=== PATIENT | female | born 1975 | race African-American/Black ===

== ENCOUNTER 2016-07-08 14:49 | Emergency (ER) ==
--- NOTE | 2016-07-08 15:35 | PROVIDER DOCUMENTATION ---
HPI-General Adult <Briana Monsivais - Last Filed: 07/08/16 17:42> - General Source: patient - History of Present Illness -Gen Adult Nature of Presenting Problems: pt is a 41 y/o f present to the Er with complaints of not being able to feel her lower extremities. pt states it feels like something is sitting on top of her. Pt says she has not used the restoom all day today. Pt denies any recent car accident. pt states she feels like she's not together. Pt is tearful. Location of Pain/Injury: reports: lower extremity (bilateral) Pain Radiation: reports: back Quality of Pain: reports: pressure Severity: reports: severe Onset/Duration: reports: other (yesterday and became worse today to the point where she cant ambulate today) Timing: reports: still present, getting worse Modifying Factors: improves with: nothing Associated Symptoms: reports: back/neck pain. denies: cough, fatigue, fever/ chills, headaches Similar Symptoms Previously?: No Recently seen or treated by another doctor?: No <Cynthia Torrez - Last Filed: 07/08/16 18:00> - General Chief Complaint: Generalized Pain Stated Complaint: "CANT FEEL LOWER BODY" Time Seen by Provider: 07/08/16 15:14 Allergies/Adverse Reactions: Patient Allergies Allergy/AdvReac Type Severity Reaction Status Date / Time No Known Allergies Allergy Verified 08/18/15 11:09 Home Medications: Home Medication List Medication Instructions Recorded Confirmed Last Taken Type Amoxicillin [Amoxil] 500 mg PO TID #30 capsule 01/14/16 Unknown Rx Pregabalin [Lyrica] 75 mg PO 01/14/16 Unknown History Meloxicam [Mobic] 15 mg PO DAILY #30 tablet 07/08/16 Unknown Rx Methocarbamol [Robaxin] 500 mg PO BID #30 tablet 07/08/16 Unknown Rx Review of Systems - Adult - REVIEW OF SYSTEMS - ADULT Constitutional: reports: no symptoms reported Eyes: reports: no symptoms reported Ears, Nose, Mouth & Throat: reports: no symptoms reported Cardiovascular: reports: no symptoms reported Respiratory: reports: no symptoms reported Gastrointestinal: denies: abdominal pain, hematemesis, constipation Genitourinary: reports: no symptoms reported Musculoskeletal: reports: muscle weakness. denies: bone pain, frequent leg cramps, neck pain Integumentary: reports: no symptoms reported Neurological: reports: other (cannot feel bilateral lower extremities). denies : ataxia, dizziness/vertigo, headache/migraines Psychiatric: reports: no symptoms reported Endocrine: reports: no symptoms reported Hematologic/Lymphatic: reports: no symptoms reported Allergic/Immunologic: reports: no symptoms reported All Other Systems: Reviewed and Negative <Cynthia Torrez - Last Filed: 07/08/16 18:00> Past History - Adult - PAST MEDICAL HISTORY-ADULT Review of Records: reports: Nursing Assessment Review Major Childhood Illnesses: reports: denies history Cardiovascular: reports: denies history Respiratory: reports: denies history Gastrointestinal: reports: denies history Obstetrical/Gynecological: reports: denies history Genitourinary: reports: denies history Musculoskeletal: reports: denies history Neurological: reports: denies history Endocrine/Immune: reports: denies history Other Conditions: reports: denies history - PRIOR SURGERIES/PROCEDURES Surgical/Procedure History: reports: BTL - IMMUNIZATION STATUS Childhood Immunizations: See Nurse Assessment Flu Vaccine: See Nurse Assessment - FAMILY HISTORY Family History: reviewed, not pertinent <Cynthia Torrez - Last Filed: 07/08/16 18:00> Physical Exam-General - PHYSICAL EXAM-ADULT Initial Vital Signs Reviewed: Yes - CONSTITUTIONAL General Appearance: appears well, alert, mild distress - EYES Eyes: PERRL/EOMI, pink conjunctivae - HEAD, EARS, NOSE, MOUTH & THROAT HENMT: moist mucous membranes, normal ENT inspection - NECK Neck: non-tender, full range of motion - RESPIRATORY Respiratory: chest non-tender, lungs clear, normal breath sounds, no pleuratic chest pain, no respiratory distress, no accessory muscle use - CARDIOVASCULAR Cardiovascular: normal peripheral pulses, regular rate, rhythm, no edema, no gallop, no JVD, no murmur - GASTROINTESTINAL (ABDOMEN) Abdominal Exam: normal bowel sounds, non tender, soft - MUSCULOSKELETAL Extremity: other (Goos sharp/Dull Responses on on right fold, right leg, and left thigh.) Peripheral Pulses: dorsalis-pedis (R): 2+, dorsalis-pedis (L): 2+ - SKIN Integumentary: normal color, normal turgor, warm/dry - NEUROLOGIC Neurologic: other (negative any's bilateral) - PSYCHIATRIC Psych/Mental Status: normal thought content, normal thought process, oriented x 3, tearful <Cynthia Torrez - Last Filed: 07/08/16 18:00> Progress - PLAN OF CARE/RESULTS Progress/Plan/Lab Results: Orders Category Date Time Status LUMBAR SPINE W/O CONTRAST [CT] Stat Exams 07/08/16 15:30 Ordered CBC WITH DIFF [HEME] Stat Lab 07/08/16 15:29 Ordered COMPREHENSIVE METABOLIC PANEL [CHEM] Stat Lab 07/08/16 15:29 Ordered SED RATE [HEME] Stat Lab 07/08/16 15:29 Ordered UDS [URINE DRUG SCREEN PL] Stat Lab 07/08/16 15:[address] W/POSS RFLX CULT [URINALYSIS] Stat Lab 07/08/16 15:29 Uncollected Vital Signs - 24 hr 07/08/16 14:59 Temperature 98.7 F Pulse Rate 107 H Respiratory 20 Rate Blood Pressure 142/97 O2 Sat by Pulse 97 Oximetry Laboratory Tests 07/08/16 07/08/16 07/08/16 15:59 15:59 16:11 WBC RBC Hgb Hct MCV MCH MCHC RDW Std Deviation Plt Count MPV Immature Gran % (Auto) Neut % (Auto) Lymph % (Auto) Morton % (Auto) Eos % (Auto) Baso % (Auto) Immature Gran # (Auto) Neut # (Auto) Lymph # (Auto) Morton # (Auto) Eos # (Auto) Baso # (Auto) Sodium 136 Potassium 3.5 Chloride 103 Carbon Dioxide 23 L Anion Gap 10 BUN 9 Creatinine 0.8 Estimated GFR/1.73 m2 > 60 BUN/Creatinine Ratio 11 Glucose 100 Calculated Osmolality 271 Calcium 9.4 Total Bilirubin 0.40 AST 16 ALT 12 Alkaline Phosphatase 65 Total Protein 7.0 Albumin 4.1 Globulin 3.0 Albumin/Globulin Ratio 1.0 Urine Source CATH Urine Color YELLOW Urine Clarity CLEAR Urine pH 5.0 Ur Specific Dearing 1.020 Urine Protein NEGATIVE Urine Ketones NEGATIVE Urine Blood NEGATIVE Urine Nitrite NEGATIVE Urine Bilirubin NEGATIVE Urine Urobilinogen NORMAL Urine Microscopic RBC <10 Urine WBC NEGATIVE Urine Microscopic WBC <10 Ur Epithelial Cells <10 Urine Bacteria NEGATIVE Urine Glucose NEGATIVE Urine Opiates Screen NONE DETECTED Ur Oxycodone Screen NONE DETECTED Urine Methadone Screen NONE DETECTED Ur Barbituates Screen NONE DETECTED Ur Tricyclics Screen NONE DETECTED Ur Phencyclidine Scrn NONE DETECTED Ur Amphetamines Screen NONE DETECTED U Methamphetamines Scrn NONE DETECTED Urine MDMA Screen NONE DETECTED U Benzodiazepines Scrn NONE DETECTED Urine Cocaine Screen NONE DETECTED U Cannabinoids Screen NONE DETECTED 07/08/16 16:11 WBC 6.33 RBC 4.40 Hgb 13.6 Hct 38.6 MCV 87.7 MCH 30.9 MCHC 35.2 RDW Std Deviation 13.8 Plt Count 244 MPV 11.0 H Immature Gran % (Auto) 0.2 Neut % (Auto) 65.6 Lymph % (Auto) 25.3 Morton % (Auto) 7.6 Eos % (Auto) 1.1 Baso % (Auto) 0.2 Immature Gran # (Auto) 0.01 Neut # (Auto) 4.16 Lymph # (Auto) 1.60 Morton # (Auto) 0.48 Eos # (Auto) 0.07 Baso # (Auto) 0.01 Sodium Potassium Chloride Carbon Dioxide Anion Gap BUN Creatinine Estimated GFR/1.73 m2 BUN/Creatinine Ratio Glucose Calculated Osmolality Calcium Total Bilirubin AST ALT Alkaline Phosphatase Total Protein Albumin Globulin Albumin/Globulin Ratio Urine Source Urine Color Urine Clarity Urine pH Ur Specific Dearing Urine Protein Urine Ketones Urine Blood Urine Nitrite Urine Bilirubin Urine Urobilinogen Urine Microscopic RBC Urine WBC Urine Microscopic WBC Ur Epithelial Cells Urine Bacteria Urine Glucose Urine Opiates Screen Ur Oxycodone Screen Urine Methadone Screen Ur Barbituates Screen Ur Tricyclics Screen Ur Phencyclidine Scrn Ur Amphetamines Screen U Methamphetamines Scrn Urine MDMA Screen U Benzodiazepines Scrn Urine Cocaine Screen U Cannabinoids Screen Orders Category Date Time Status LUMBAR SPINE W/O CONTRAST [CT] Stat Exams 07/08/16 15:30 Completed CBC WITH DIFF [HEME] Stat Lab 07/08/16 16:11 Results COMPREHENSIVE METABOLIC PANEL [CHEM] Stat Lab 07/08/16 16:11 Completed SED RATE [HEME] Stat Lab 07/08/16 16:11 Results UDS [URINE DRUG SCREEN PL] Stat Lab 07/08/16 15:[address] W/POSS RFLX CULT [URINALYSIS] Stat Lab 07/08/16 15:59 Completed Vital Signs - 24 hr 07/08/16 07/08/16 14:59 16:30 Temperature 98.7 F Pulse Rate 107 H 82 Respiratory 20 16 Rate Blood Pressure 142/97 103/79 O2 Sat by Pulse 97 99 Oximetry - XRAY 1 XRAY: Bilateral XRAY Study: Lumbar Spine (w/o contrast.) Impression: Normal (Small bulging disc, but no herniation identified and no fracture ([place])) <Cynthia Torrez - Last Filed: 07/08/16 18:00> Departure - Departure Time of Disposition Order: 17:42 Certified Medical Emergency: Emergent <Briana Monsivais - Last Filed: 07/08/16 17:42> - Departure Time of Disposition Order: 17:59 Certified Medical Emergency: Emergent <Cynthia Torrez - Last Filed: 07/08/16 18:00> - Departure DIAGNOSIS: Bulging lumbar disc Lower extremity pain Qualifiers: Laterality: unspecified laterality Qualified Code(s): M79.606 - Pain in leg, unspecified Disposition: HOME 01 Condition: Stable Additional Instructions: Walk with assistance twice daily, at least 50 yards each. Follow up with specialist for further management. Prescriptions: Meloxicam [Mobic] 15 mg PO DAILY #30 tablet Methocarbamol [Robaxin] 500 mg PO BID #30 tablet Referrals: None,PCP [Primary Care Provider] - Francesco Rock DO [STAFF PHYSICIAN] - Meek Martinez MD [STAFF PHYSICIAN] - Forms: Return to School/Parent Work Instructions: Back Pain, Adult, [id number], Back Injury Prevention, Meloxicam tablets, Methocarbamol tablets Attestation - Scribe Verification/Attestation Scribe:: Cynthia Torrez Acting as Scribe for:: Briana Monsivais Scribe documention review:: This chart was documented by a scribe and accurately reflects the service the provider performed and the decisions made by the provider. <Cynthia Torrez - Last Filed: 07/08/16 18:00> Physician Attestation
[2016-07-08 16:07] LABS: URINE CULTURE PL NEEDED? NO; URINE SOURCE CATH
--- NOTE | 2016-07-08 16:12 | Diag Imaging Result Document ---
PROCEDURE NAME: LUMBAR SPINE W/O CONTRAST - 07/08/2016 CT LUMBAR SPINE WITHOUT CONTRAST: FINDINGS: There is good alignment to the lumbar spine. No compressed vertebra. No other fracture. I do not identify a disc herniation. There are bulging discs in the lower lumbar spine, but there is only mild spinal stenosis. No other abnormality. IMPRESSION: Small bulging disc from the lower lumbar spine but no fracture or disc herniation is identified.
[2016-07-08 16:19] LABS: BILIRUBIN URINE NEGATIVE (NEGATIVE); BLOOD URINE NEGATIVE (NEGATIVE); CLARITY CLEAR (CLEAR); COLOR YELLOW; GLUCOSE URINE NEGATIVE (NEGATIVE); LEUKOCYTES URINE NEGATIVE (NEGATIVE); NITRITE URINE NEGATIVE (NEGATIVE); PROTEIN URINE NEGATIVE (NEGATIVE); UR AMPHETAMINES QUAL NONE DETECTED (NONE DETECT); UR BARBITUATES QUAL NONE DETECTED (NONE DETECT); UR BENZODIAZEPIN QUAL NONE DETECTED (NONE DETECT); UR CANNABINOIDS QUAL NONE DETECTED (NONE DETECT); UR COCAINE QUAL NONE DETECTED (NONE DETECT); UR MDMA QUAL NONE DETECTED (NONE DETECT); UR METHADONE QUAL NONE DETECTED (NONE DETECT); UR METHAMPHETAMINE QUAL NONE DETECTED (NONE DETECT); UR OPIATES QUAL NONE DETECTED (NONE DETECT); UR OXYCODONE QUAL NONE DETECTED (NONE DETECT); UR PCP QUAL NONE DETECTED (NONE DETECT); UR TCA QUAL NONE DETECTED (NONE DETECT); UROBILINOGEN URINE NORMAL
[2016-07-08 16:23] LABS: MANUAL DIFF NEEDED? NO
[2016-07-08 16:30] LABS: BASO% 0.2 % (0.0-0.8); EOS# 0.07 X1000 (0.0-0.7); EOS% 1.1 % (0.0-10.0); HEMATOCRIT 38.6 % (37.0-47.0); HEMOGLOBIN 13.6 g/dL (12.0-16.0); IMM GRAN# 0.01 X1000 (0.0-0.04); IMM GRAN% 0.2 % (0.0-0.5); LYMPH% 25.3 % (20.5-51.1); MCH 30.9 PG (27-31); MCHC 35.2 g/dL (33-37); MCV 87.7 FL (81-99); MONO# 0.48 X1000 (0.11-0.59); MONO% 7.6 % (1.7-9.3); NEUT% 65.6 % (42.2-75.2); PLT 244 X1000 (130-400)
[2016-07-08 16:48] LABS: URINE EPITHELIAL CELLS <10 /HPF (<10); URINE RBC <10 /HPF (<10); URINE WBC <10 /HPF (<10)
[2016-07-08 17:18] LABS: AGAP 10; ALBUMIN 4.1 g/dL (3.5-5.0); ALKALINE PHOSPHATASE 65 U/L (32-104); BUN 9 mg/dL (8-22); CALCIUM 9.4 mg/dL (8.8-10.2); CHLORIDE 103 mmol/L (98-107); COSMO 271; GOT 16 U/L (10-30); GPT 12 U/L (10-36); POTASSIUM 3.5 mmol/L (3.5-5.1); SODIUM 136 mmol/L (136-145); TCO2 23 mmol/L (25-35)
[2016-07-08 17:41] LABS: SED RATE 2 mm/hr (0-20)
[2016-07-08] MEDS ORDERED: TORADOL IM ONE (17:45)
[2016-07-08] MEDS ORDERED: PHENERGAN IM ONE (17:45)
[2016-07-08 17:58] VITALS: BP 138/85
== END 2016-07-08 18:29 | disposition home or self-care (01) ==
LOC: P.ED 14:49
DX: M51.86 Other intervertebral disc disorders, lumbar region (principal); M79.606 Pain in leg, unspecified; M62.81 Muscle weakness (generalized); M25.552 Pain in left hip; M25.551 Pain in right hip; R10.30 Lower abdominal pain, unspecified
CPT/HCPCS: 72131; 80053; 80305; 81001; 85025; 85651; 96372; J1885; J2550

== ENCOUNTER 2019-06-11 21:06 | Inpatient (IN) ==
[2019-06-11] MEDS ORDERED: NS 1,000 ML IV ONE ×2 (21:26→23:39)
[2019-06-11] MEDS ORDERED: ZOFRAN IV ONE (21:41)
[2019-06-11] MEDS ORDERED: TYLENOL PO ONE (21:44)
[2019-06-11 21:52] LABS: INFLUENZA A NEGATIVE (NEGATIVE); INFLUENZA B NEGATIVE (NEGATIVE)
--- NOTE | 2019-06-11 21:59 | PROVIDER DOCUMENTATION ---
HPI-Abdominal Pain/GI Problem - General Chief Complaint: N/V/D Stated Complaint: N/V/D Time Seen by Provider: 06/11/19 21:23 Source: patient Allergies/Adverse Reactions: Patient Allergies Allergy/AdvReac Type Severity Reaction Status Date / Time No Known Allergies Allergy Verified 06/11/19 21:25 Home Medications: Home Medication List Medication Instructions Recorded Confirmed Last Taken Type Pregabalin [Lyrica] 75 mg PO 01/14/16 Unknown History Meloxicam [Mobic] 15 mg PO DAILY #30 tablet 07/08/16 Unknown Rx Methocarbamol [Robaxin] 500 mg PO BID #30 tablet 07/08/16 Unknown Rx Ondansetron Odt [Zofran 4 mg Odt] 4 mg PO Q6H PRN PRN #20 tab 04/12/18 Unknown Rx Oxycodone/APAP 5 mg/325 mg 1 ea PO Q4H PRN PRN 3 Days #12 tab 04/12/18 Unknown Rx [Percocet-5] - History of Present Illness-ABD Nature of Presenting Problems: 44 yof presents with c/o generalized abdominal pain, body aches, n/v/d, fever, chills that began today. No known sick contacts Abdominal Pain Onset Location: reports: generalized abdomen Pain Radiation: reports: flank Quality of Pain: reports: aching Severity in ED: reports: moderate Onset/Duration: reports: this morning Timing: reports: still present Activities at Onset: reports: none Exposure to sick contacts?: No Associated Symptoms: reports: diarrhea, fever/chills, nausea, vomiting, other (mucus in throat) Last BM: this afternoon Dark Stools Present?: reports: none noticed Rectal Bleeding: reports: none # of Diarrhea Episodes: 6 Rectal Pain: reports: none # of Vomiting Episodes: 12 Emesis Description: reports: none Bruising or Bleeding Gums?: No Similar Symptoms Previously?: No Recently seen or treated by another doctor?: No Review of Systems - Adult - REVIEW OF SYSTEMS - ADULT Constitutional: reports: chills, fever. denies: no symptoms reported, see HPI, fatique, night sweats, weight gain, weight loss, other Eyes: reports: no symptoms reported. denies: see HPI, discharge, dry eyes, decreased vision, blurred vision, double vision, eye pain, redness, other Ears, Nose, Mouth & Throat: reports: see HPI, other (feels like mucus in throat) . denies: no symptoms reported, ear discharge, ear pain, hearing loss, tinnitus, epistaxis, sinus problem, nose pain, loose teeth, mouth/dental pain, mouth swelling, hoarseness, throat pain, throat swelling Cardiovascular: reports: no symptoms reported. denies: see HPI, chest pain, edema, heart murmur, irregular heart rate, orthopnea, palpitations, poor circulation, PND, syncope, other Respiratory: reports: no symptoms reported. denies: see HPI, chronic cough, cough, dyspnea on exertion, excessive sputum production, hemoptysis, pleurisy, shortness of breath, wheezing, other Gastrointestinal: reports: see HPI, abdominal pain, diarrhea, nausea, vomiting. denies: no symptoms reported, hematemesis, constipation, difficulty swallowing, frequent heartburn, poor appetite, rectal bleeding, other Genitourinary: reports: no symptoms reported. denies: see HPI, dysuria, discharge, frequency, flank pain, frequent UTI's, hematuria, hesitency, incontinence, urinary retention, urgency, other Musculoskeletal: reports: no symptoms reported. denies: see HPI, bone pain, back pain, frequent leg cramps, joint pain, joint swelling, muscle aches, muscle weakness, neck pain, other Integumentary: reports: no symptoms reported. denies: see HPI, hives, hair loss, itching, mole changes, nail changes, rash, skin sores/ulcer, skin thickening, other Neurological: reports: no symptoms reported. denies: see HPI, ataxia, dizziness/vertigo, headache/migraines, loss of balance, numbness, paresthesia, seizure, slurred speech, syncope, tremors, other Psychiatric: reports: no symptoms reported. denies: see HPI, anxiety, anti- depressant use, alcohol/drug dependence, depression, emotional problems, insomnia, panic attacks, suicidal thoughts, other Endocrine: reports: no symptoms reported. denies: see HPI, change in skin pigment, excessive sweating, goiter, cold intolerance, heat intolerance, increased hunger, increased thirst, polyuria, other Hematologic/Lymphatic: reports: no symptoms reported. denies: see HPI, blood clots, easy bruising, low blood count, lymphedema, prolonged bleeding, swollen lymph nodes, transfusions, other Allergic/Immunologic: reports: no symptoms reported. denies: see HPI, allergic reactions, allergic rhinitis, asthma, eczema, food allergy, frequent infections, hay fever, hives, positive PPD, urticaria, other Past History - Adult - PAST MEDICAL HISTORY-ADULT Review of Records: reports: Nursing Assessment Review, Social history reviewed & non-contributory. Major Childhood Illnesses: reports: denies history Cardiovascular: reports: denies history Respiratory: reports: denies history Gastrointestinal: reports: denies history Obstetrical/Gynecological: reports: denies history Genitourinary: reports: denies history Musculoskeletal: reports: denies history Neurological: reports: denies history Psychiatric: reports: denies history Endocrine/Immune: reports: denies history Other Conditions: reports: denies history - PRIOR SURGERIES/PROCEDURES Surgical/Procedure History: reports: hysterectomy, BTL - IMMUNIZATION STATUS Childhood Immunizations: See Nurse Assessment Flu Vaccine: See Nurse Assessment - FAMILY HISTORY Family History: reviewed, not pertinent Physical Exam-General - PHYSICAL EXAM-ADULT Initial Vital Signs Reviewed: Yes - CONSTITUTIONAL General Appearance: alert, no apparent distress. negative: appears well (appears in pain) - EYES Eyes: PERRL/EOMI, pink conjunctivae - HEAD, EARS, NOSE, MOUTH & THROAT HENMT: normocephalic/atraumatic, moist mucous membranes, normal ENT inspection - NECK Neck: non-tender, full range of motion, supple - RESPIRATORY Respiratory: chest non-tender, lungs clear, normal breath sounds, no pleuratic chest pain, no respiratory distress, no accessory muscle use - CARDIOVASCULAR Cardiovascular: normal peripheral pulses, no edema, no gallop, no JVD, no murmur , tachycardia (113 one exam) - GASTROINTESTINAL (ABDOMEN) Abdominal Exam: normal bowel sounds, soft, tenderness (generalized) - LYMPHATIC Lymphatic: no adenopathy - MUSCULOSKELETAL Back Exam: normal inspection, no CVA tenderness, no vertebral tenderness Extremity: normal range of motion, non-tender, normal gait, normal inspection, no pedal edema, no calf tenderness - SKIN Integumentary: normal color, normal turgor, warm/dry - NEUROLOGIC Neurologic: grossly normal - PSYCHIATRIC Psych/Mental Status: normal mood/affect, oriented x 3 Progress - PLAN OF CARE/RESULTS Progress/Plan/Lab Results: Vital Signs - 8 hr 06/11/19 21:20 Temperature 101.1 F H Pulse Rate 132 H Respiratory Rate 20 Blood Pressure 138/65 O2 Sat by Pulse Oximetry 96 Laboratory Results - last 24 hr 06/11/19 21:27 Influenza A (Rapid) NEGATIVE Influenza B (Rapid) NEGATIVE Orders Category Date Time Status ED: Urine Bedside ORDERED Care 06/11/19 21:27 Active ED: Urine Bedside NOW Care 06/11/19 21:26 Active Saline Loc NOW Care 06/11/19 21:26 Active CBC WITH ELECTRONIC DIFF [HEME] Stat Lab 06/11/19 21:26 Uncollected COMPREHENSIVE METABOLIC PANEL [CHEM] Stat Lab 06/11/19 21:[address] Stat Lab 06/11/19 21:27 Completed LIPASE [CHEM] Stat Lab 06/11/19 21:26 Uncollected UA NIMS W/REFLEX CULT [URINALYSIS] Stat Lab 06/11/19 21:26 Uncollected 0.9% Sodium Chloride Inj [Ns] 1,000 ml Med 06/11/19 21:26 Active IV 999 mls/hr Acetaminophen [Tylenol] Med 06/11/19 21:44 Discontinued 1,000 mg PO NOW ONE Ondansetron [Zofran] Med 06/11/19 21:41 Discontinued 4 mg IV NOW ONE EKG [EKG] Stat Ther 06/11/19 21:27 Ordered Result Diagrams: 06/11/19 22:40 06/11/19 22:40 - REASSESSMENT Reassessment #1 Time Reassessed: 00:12 (updated pt, waiting urine, CT and will update. she reports continued bodyaches) Status: unchanged Reassessment #2 Time Reassessed: 00:45 (pt agreeable to admission) Status: unchanged - CT/MRI 1 CT Study: Abdomen, Pelvis Impression: See EMR Report (moderate thickening mucosal edema distal ileal pelvic small bowel loops c/w enteritis.NO obstruction. Paige Desouza MD- real rad) - CONSULTS/PCP/HOSPITALIST Notification #1 *Consult/PCP/Hospitalist*: Dr. Hart Time Discussed: 00:47 Consult Disposition: Admit Departure - Departure Date of Disposition Decision: 06/12/19 Time of Disposition Decision: 00:46 DIAGNOSIS: Dehydration, Nausea vomiting and diarrhea, Tachycardia Disposition: ADMITTED INPATIENT 09 Certified Medical Emergency: Emergent Condition: Stable Referrals and Follow-Ups: None,PCP [Primary Care Provider] - - Critical Care Note This patient required my direct & personal management of CC.: No Attestation - Physician/ CAIT Attestation Patient care was provided by Advanced Practice Provider:: Yes Advanced Practice Provider:: Yael Palomares Advanced Practice Provider documentation review:: The Mid-level provider documentation, treatment plan and medical decision making was reviewed by the physician who agrees with all treatment and medical decision making by the MLP. The physician spent face to face time with patient:: No Advanced Practice Provider documentation review:: Supervising physician onsite a nd consulted in the evaluation and care of this patient. The physician did not have a face to face encounter with the patient.
[2019-06-11 22:56] LABS: BASO# 0.01 X1000 (0.0-0.2); BASO% 0.1 % (0.0-0.8); HEMATOCRIT 38.6 % (37.0-47.0); HEMOGLOBIN 12.9 g/dL (12.0-16.0); IMM GRAN# 0.02 X1000 (0.0-0.04); IMM GRAN% 0.2 % (0.0-0.5); LYMPH# 0.32 X1000 (1.2-3.4); LYMPH% 2.8 % (20.5-51.1); MCH 29.8 PG (27-31); MCHC 33.4 g/dL (33-37); MCV 89.1 FL (81-99); MONO# 0.81 X1000 (0.11-0.59); MPV 10.4 FL (7.4-10.4); NEUT# 10.46 X1000 (1.4-6.5); NEUT% 89.9 % (42.2-75.2); PLT 250 X1000 (130-400); RBC 4.33 XMIL (4.2-5.4); RDW 14.9 % (11.5-14.5); WBC 11.62 X1000 (4.8-10.8)
[2019-06-11 23:18] LABS: AGAP 14; ALBUMIN 4.1 g/dL (3.5-5.0); ALKALINE PHOSPHATASE 68 U/L (32-104); BUN 11 mg/dL (8-22); CALCIUM 8.8 mg/dL (8.8-10.2); CHLORIDE 102 mmol/L (98-107); COSMO 274; CREATININE 0.7 mg/dL (0.5-0.9); ESTIMATED GFR > 60; GLUCOSE 143 mg/dL (70-104); GOT 20 U/L (10-30); GPT 19 U/L (10-36); LIPASE 15 U/L (13-60); POTASSIUM 3.5 mmol/L (3.5-5.1); SODIUM 136 mmol/L (136-145); TCO2 20 mmol/L (25-35); TOTAL PROTEIN 7.3 g/dL (6.3-8.3)
[2019-06-11] MEDS ORDERED: MOTRIN PO ONE (23:42)
[2019-06-12 00:04] LABS: URINE SOURCE CLEAN CATCH
[2019-06-12] MEDS ORDERED: NS 1,000 ML IV ONE (00:47)
[2019-06-12] MEDS ORDERED: TYLENOL PO PRN (00:47)
[2019-06-12 00:50] LABS: BILIRUBIN URINE NEGATIVE (NEGATIVE); BLOOD URINE NEGATIVE (NEGATIVE); COLOR YELLOW; GLUCOSE URINE NEGATIVE (NEGATIVE); KETONE URINE NEGATIVE (NEGATIVE); LEUKOCYTES URINE NEGATIVE (NEGATIVE); NITRITE URINE NEGATIVE (NEGATIVE); PROTEIN URINE TRACE mg/dL (NEGATIVE); TURBIDITY URINE CLEAR (CLEAR); UR EPITHELIAL CELLS <10 /HPF (<10); URINE BACTERIA NEGATIVE /HPF; URINE RBC <10 /HPF (<10); URINE WBC <10 /HPF (<10); UROBILINOGEN URINE NORMAL (NORMAL)
[2019-06-12] MEDS ORDERED: IMODIUM PO PRN (02:17)
--- NOTE | 2019-06-12 05:18 | Diag Imaging Result Doc PS360 ---
EXAM: CT ABD/PELVIS W/IV CONT ONLY HISTORY: abd pain, fever,n/v/d, tenderenss TECHNIQUE: With intravenous contrast, but without oral contrast. COMPARISON: 08/18/2015 FINDINGS: Normal spleen. Normal pancreas. The gallbladder is contracted. No calcified stones. There is fatty infiltration of the liver. Normal adrenal glands and kidneys. No hydronephrosis. Normal aorta. No bowel obstruction. Mild thickening to the wall of several distal small bowel loops. The appendix is not identified. No abscess. The uterus has been removed. There are small ovarian cysts. No pelvic mass. IMPRESSION: 1.Mild distal small bowel enteritis 2.There is fatty infiltration of the liver 3.Hysterectomy A preliminary report was given at 12:39 AM This exam was performed using automated exposure control, adjustment of mA or kV according to patient size, and/or use of iterative reconstruction technique. Electronically signed by Ferny Castelan 06/12/2019 5:16 AM
[2019-06-12] MEDS: FLAGYL 500 MG/NS 500 MG/100 ML IVPB IV SCH ×3 (08:17→20:06)
[2019-06-12] MEDS: PEPCID PO SCH (08:22)
[2019-06-12 09:07] LABS: HEMATOCRIT 36.8 % (37.0-47.0); HEMOGLOBIN 12.1 g/dL (12.0-16.0); IMM GRAN# 0.01 X1000 (0.0-0.04); IMM GRAN% 0.2 % (0.0-0.5); LYMPH# 0.43 X1000 (1.2-3.4); LYMPH% 8.3 % (20.5-51.1); MCH 29.6 PG (27-31); MCHC 32.9 g/dL (33-37); MONO# 0.64 X1000 (0.11-0.59); MONO% 12.4 % (1.7-9.3); MPV 10.5 FL (7.4-10.4); NEUT# 4.09 X1000 (1.4-6.5); NEUT% 79.1 % (42.2-75.2); PLT 205 X1000 (130-400); RBC 4.09 XMIL (4.2-5.4); RDW 14.9 % (11.5-14.5); WBC 5.17 X1000 (4.8-10.8)
[2019-06-12 09:22] LABS: AGAP 12; ALBUMIN 3.6 g/dL (3.5-5.0); ALKALINE PHOSPHATASE 58 U/L (32-104); BUN 8 mg/dL (8-22); CALCIUM 7.9 mg/dL (8.8-10.2); CHLORIDE 105 mmol/L (98-107); COSMO 274; CREATININE 0.6 mg/dL (0.5-0.9); ESTIMATED GFR > 60; GLUCOSE 138 mg/dL (70-104); GOT 15 U/L (10-30); GPT 17 U/L (10-36); POTASSIUM 3.4 mmol/L (3.5-5.1); SODIUM 137 mmol/L (136-145); TCO2 20 mmol/L (25-35); TOTAL PROTEIN 6.6 g/dL (6.3-8.3)
[2019-06-12] MEDS: LEVAQUIN 500 MG/D5W 500 MG/100 ML IVPB IV SCH (10:25)
[2019-06-12] MEDS: TORADOL IV PRN ×2 (12:23→16:45)
[2019-06-12] MEDS: ZOFRAN IV PRN ×2 (12:23→16:45)
[2019-06-12] MEDS: DILAUDID IV PRN ×2 (17:40→23:33)
--- NOTE | 2019-06-12 22:14 | HISTORY AND PHYSICAL ---
ADDENDUM: Patient seen and examined by myself. Full note dictated and discussed with nurse practitioner. Patient is a 44-year-old female who presented to the hospital with nausea, vomiting, abdominal pain, diagnosed enteritis as well as a fatty liver. We are going to admit her to the hospital, keep her n.p.o., pain control, antibiotics, and will follow. cc: Erasmo Lozano MD
[2019-06-13] MEDS: FLAGYL 500 MG/NS 500 MG/100 ML IVPB IV SCH ×4 (02:02→23:02)
[2019-06-13] MEDS: ZOFRAN IV PRN ×2 (08:05→16:03)
[2019-06-13] MEDS: DILAUDID IV PRN ×3 (08:05→18:57)
[2019-06-13] MEDS: PEPCID PO SCH (08:06)
[2019-06-13] MEDS: LEVAQUIN 500 MG/D5W 500 MG/100 ML IVPB IV SCH (09:39)
[2019-06-13] MEDS: NS 1,000 ML IV SCH (09:40)
[2019-06-13] MEDS: TORADOL IV PRN ×2 (16:04→23:01)
--- NOTE | 2019-06-13 18:20 | PROGRESS NOTE ---
DATE: 06/13/2019 SUBJECTIVE: The patient notes that she feels terrible. She is still having lots of abdominal pain and nausea. Denies any fevers or chills, cough or congestion. Denies chest pain. Abdomen still hurts. Unable to keep anything down orally. PHYSICAL EXAM: Vital signs: Temperature 98 degrees, pulse 90, respiratory 18, BP 130/79. General: Patient is pleasant. She is still somewhat ill appearing. Still appears to have abdominal pain. HEENT: Normocephalic. Neck: Supple. Cardiovascular: Regular rate. Chest: Clear, nonlabored. Abdomen: Soft, diffusely tender in lower quadrants. Extremities: Moves all extremities. Neurologic: No changes. ASSESSMENT: 1. Enteritis. 2. Febrile illness. 3. Sepsis with elevated white count, fever and tachycardia. 4. Supraventricular tachycardia. PLAN: We are going to continue IV Flagyl, Levaquin and pain control. Continue IV fluids. Further orders as needed. cc: Erasmo Lozano MD
--- NOTE | 2019-06-13 20:07 | HISTORY AND PHYSICAL ---
CHIEF COMPLAINT: Nausea, vomiting. HISTORY OF PRESENT ILLNESS: Patient is a very pleasant, 44-year-old female, who presented to [facility] secondary to abdominal pain, nausea, vomiting. She states she has had fevers, low-grade chills beginning the date of admission. Denies any chest pains. Denies diarrhea, constipation, melena, hematochezia. ALLERGIES: No known drug allergies. MEDICATIONS: Lyrica, Mobic, Robaxin, and Percocet by history, although not currently taking. REVIEW OF SYSTEMS: As noted above. States that she has had difficulty swallowing. She has felt like she has had mucus stuck in her throat. She has had low-grade fevers, chills, cough. She has had abdominal pain. Notes that she started having diarrhea right before she came to the ER, but nothing prior. She has had nausea, vomiting. Denies hematemesis, hematochezia, melena, hemoptysis. Denies dysuria, frequency. Denies constipation, melena. Denies chest pain, palpitations, shortness of breath. Denies swelling in her lower extremities. PAST MEDICAL HISTORY: She has no chronic active medical problems other than muscle spasms. SURGICAL HISTORY: Hysterectomy with BTL. FAMILY HISTORY: Noncontributory. SOCIAL HISTORY: Does not smoke or drink. PHYSICAL EXAMINATION: VITAL SIGNS: Reviewed. Temperature 101 degrees, pulse 132, respiratory rate 20, BP 138/65, saturating 96% on room air. GENERAL: Patient is awake, pleasant. She is in no current respiratory distress, but she is obviously ill appearing. HEENT: Normocephalic. NECK: Supple. CARDIOVASCULAR: Regular rate. CHEST: Clear, nonlabored. ABDOMEN: Soft, diffusely tender, more so in the bilateral lower quadrants. EXTREMITIES: Moves all extremities. No edema. NEUROLOGIC: No changes. ASSESSMENT: 1. Dehydration. 2. Nausea, vomiting. 3. Tachycardia. 4. Mild leukocytosis with a white count of 11.6. 5. Distal small-bowel enteritis of undetermined origin. 6. Fatty liver. PLAN: We are going to admit the patient to the hospital. Antibiotics, pain control, fluids, and will follow. cc: Erasmo Lozano MD
[2019-06-14] MEDS: NS 1,000 ML IV SCH ×3 (02:47→22:22)
[2019-06-14] MEDS: FLAGYL 500 MG/NS 500 MG/100 ML IVPB IV SCH ×4 (02:47→22:22)
[2019-06-14] MEDS: PEPCID PO SCH (08:43)
[2019-06-14] MEDS: TORADOL IV PRN (08:48)
--- NOTE | 2019-06-14 10:52 | Diag Imaging Result Doc PS360 ---
EXAM: CT ABD/PELVIS W/PO AND IV CON HISTORY: severe pain TECHNIQUE: CT abdomen and pelvis with oral and intravenous contrast COMPARISON: 06/12/2019 FINDINGS: The heart is mildly prominent. Normal spleen. Normal pancreas. There is sludge and possibly tiny stones within the gallbladder. No adjacent inflammation. There is fatty infiltration of the liver. Normal adrenal glands and kidneys. No hydronephrosis. Normal aorta. There are small scattered mesenteric nodes. No bowel obstruction. There continues to be mild thickening to the wall of several distal small bowel loops. They are no longer dilated as they were on the prior study. No abscess. No free air. The uterus has been removed. There are small ovarian cysts. The largest is on the right measuring 16 mm. The urinary bladder is minimally distended. There is a small amount of free fluid in the pelvis. IMPRESSION: 1.Mild improvement in the small bowel enteritis 2.There is fatty infiltration of the liver 3.Hysterectomy 4.Sludge and possible small stones in the gallbladder 5.Small amount of free fluid in the pelvis This exam was performed using automated exposure control, adjustment of mA or kV according to patient size, and/or use of iterative reconstruction technique. Electronically signed by Ferny Castelan 06/14/2019 10:50 AM
[2019-06-14] MEDS: LEVAQUIN 500 MG/D5W 500 MG/100 ML IVPB IV SCH ×2 (11:01→11:26)
[2019-06-14 11:42] LABS: AGAP 11; ALBUMIN 3.4 g/dL (3.5-5.0); ALKALINE PHOSPHATASE 52 U/L (32-104); BUN 8 mg/dL (8-22); CALCIUM 8.3 mg/dL (8.8-10.2); CHLORIDE 100 mmol/L (98-107); COSMO 269; CREATININE 0.8 mg/dL (0.5-0.9); ESTIMATED GFR > 60; GLUCOSE 116 mg/dL (70-104); GOT 16 U/L (10-30); GPT 14 U/L (10-36); POTASSIUM 3.3 mmol/L (3.5-5.1); SODIUM 135 mmol/L (136-145); TCO2 25 mmol/L (25-35); TOTAL PROTEIN 6.6 g/dL (6.3-8.3)
[2019-06-14] MEDS ORDERED: DILAUDID IV PRN (12:11)
[2019-06-14] MEDS ORDERED: IMODIUM PO PRN (12:12)
[2019-06-14 12:15] LABS: BASO# 0.02 X1000 (0.0-0.2); BASO% 0.4 % (0.0-0.8); EOS# 0.04 X1000 (0.0-0.7); EOS% 0.9 % (0.0-10.0); HEMATOCRIT 37.1 % (37.0-47.0); HEMOGLOBIN 12.2 g/dL (12.0-16.0); IMM GRAN# 0.03 X1000 (0.0-0.04); IMM GRAN% 0.7 % (0.0-0.5); LYMPH# 0.83 X1000 (1.2-3.4); LYMPH% 18.7 % (20.5-51.1); MCH 29.3 PG (27-31); MCHC 32.9 g/dL (33-37); MCV 89.2 FL (81-99); MONO# 0.72 X1000 (0.11-0.59); MONO% 16.2 % (1.7-9.3); MPV 10.5 FL (7.4-10.4); NEUT# 2.81 X1000 (1.4-6.5); NEUT% 63.1 % (42.2-75.2); PLT 229 X1000 (130-400); RBC 4.16 XMIL (4.2-5.4); RDW 14.3 % (11.5-14.5); WBC 4.45 X1000 (4.8-10.8)
[2019-06-14] MEDS ORDERED: TYLENOL PO PRN (12:15)
[2019-06-14 13:17] LABS: BANDS 10 % (0-1); LYMPHS 14 % (21-51); MONO 12 % (1-9); SEGS 58 % (42-75)
[2019-06-14 13:19] LABS: HYPOCHROM 1+; POLYCHROM 1+
[2019-06-14] MEDS: DILAUDID IV PRN ×3 (13:47→22:21)
[2019-06-14] MEDS: ZOFRAN IV PRN ×2 (13:58→18:32)
--- NOTE | 2019-06-14 22:15 | GASTROENTEROLOGY CONSULTATION ---
DATE: 06/14/2019 REASON FOR CONSULTATION: Enteritis, nausea, vomiting, diarrhea. HISTORY OF PRESENT ILLNESS: Ms. Charleen Valentine is a 44-year-old woman, with past medical history of morbid obesity, fibromyalgia, who presents with 4 days of nausea, vomiting, diarrhea. She recently returned from a cruise in the [facility] and [place] over the weekend. She reports that on her way driving back, she started having nausea, vomiting, diarrhea that is nonbloody. Her nausea and vomiting have subsided, but she has continued to have diarrhea. Since admission, she has only had 2 watery stools today. She denies any fevers, chills, sweats, hematemesis. She has some cramping abdominal pain. No recent antibiotics. No sick contacts. No hospitalizations. No similar symptoms in the past. No EGD or colonoscopy. No weight loss. REVIEW OF SYSTEMS: As per HPI, otherwise 12 point review of systems is negative. PAST MEDICAL HISTORY: As per HPI. PAST SURGICAL HISTORY: Partial hysterectomy, wisdom teeth removal. MEDICATIONS: Flexeril, meloxicam. ALLERGIES: No known drug allergies. SOCIAL HISTORY: No smoking or drug use. Social alcohol. FAMILY HISTORY: No family history of IBD or GI malignancies. PHYSICAL EXAMINATION: Vital Signs: Temperature is 98 degrees, heart rate of 78, respiratory rate 16, blood pressure 118/65, O2 saturation 100% on room air. General: Patient is awake, alert, oriented, in no acute distress. HEENT: Sclerae anicteric. Moist mucous membranes. Extraocular motor intact. Neck: Supple. No JVD or lymphadenopathy. Cardiac: Regular rate and rhythm. No murmurs. Lungs: Clear to auscultation bilaterally. Abdomen: Obese, soft. Mild diffuse tenderness to palpation throughout. No peritonitis or rebound or guarding. Bowel sounds are present. Extremities: No clubbing, cyanosis, or edema. Neurologic: Nonfocal. LABS: White count of 4.4, hemoglobin 12.2, platelets of 229,000. Sodium 135, potassium 3.3, chloride 100, bicarb 25, BUN of 8, creatinine of 0.8, glucose of 116. LFTs are normal. UA is negative. The rapid flu is negative. Strep A is negative. Clostridium difficile is negative. Fecal leukocytes are many. Culture is pending. Blood cultures x2 are pending. IMAGING: CT of the abdomen and pelvis on 06/11/2019 shows mild distal small bowel enteritis, fatty liver, hysterectomy. CT abdomen and pelvis with p.o. and IV contrast shows enteritis, fatty liver, hysterectomy, sludge with possible small stone in the gallbladder, and small amount of free fluid in the pelvis. ASSESSMENT AND PLAN: Ms. Charleen Valentine is a 44-year-old woman who presents with acute viral gastroenteritis versus bacterial enteritis. Her symptoms of nausea and vomiting have improved. She has some diarrhea; however, that has improved as well with fasting. She is on clear liquid diet. She has some mild abdominal pain. No leukocytosis. Vital signs are stable. Clostridium difficile is negative. Hemoglobin is fine. She has leukocytes in her stool. I would treat supportively with intravenous fluids. Advance her diet as tolerated to a low residue diet. You can treated empirically with antibiotics, but not necessary. These can be discontinued upon discharge. Antidiarrheals are fine. I would stop famotidine since she does not have a history of GERD. She can be discharged whenever you are ready.
--- NOTE | 2019-06-15 01:27 | GENERAL SURGERY CONSULTATION ---
DATE: 06/14/2019 REASON FOR CONSULTATION: Gallstones or sludge, abdominal pain, nausea and vomiting. REQUESTING PHYSICIAN: Erasmo Lozano MD HISTORY OF PRESENT ILLNESS: This is a 44-year-old female who recently returned from a cruise in the [facility], but has been home for 3 days. Interestingly, she started having severe abdominal pain, notably more on the right side, but also on the left side with multiple episodes of nausea, vomiting, and watery diarrhea and this began around that time. It has been persistent since then. No particular exacerbating factors other than direct pressure. She has had some relief with IV narcotics in the hospital and antiemetics. No prior episodes similar to this. No known sick contacts. None of her family or friends are sick. She did present with some fever initially. PAST MEDICAL HISTORY: Fibromyalgia. PAST SURGICAL HISTORY: Hysterectomy and bilateral tubal ligation. FAMILY HISTORY: Reviewed and noncontributory. SOCIAL HISTORY: Negative for tobacco, alcohol or illicit drug use. HOME MEDICATIONS: Mobic, Robaxin, Percocet, but not taking at this time. HOSPITAL MEDICATIONS: Toradol, Levaquin, Imodium, Flagyl, Zofran and normal saline. ALLERGIES: No known drug allergies. REVIEW OF SYSTEMS: Ten-systems reviewed and negative except as noted above. PHYSICAL EXAMINATION: Vital Signs: Temperature 98 degrees currently, 101 on admission 3 days ago, pulse 78, respirations 16, blood pressure 118/65, O2 saturation 100%. General: Well- developed, well-nourished female in no distress, who looks her stated age. HEENT: Normocephalic, atraumatic. Extraocular muscles intact. Pupils equal, round, reactive to light. Sclerae anicteric. Moist mucous membranes. Neck: Supple. No thyromegaly. Cardiovascular: Regular rate and rhythm. Respiratory: Clear bilateral breath sounds. No work of breathing. Abdomen: Soft, nondistended. No organomegaly or mass. She is diffusely tender, more so on the right side than the left, but without rebound or guarding. No hernias appreciated. Extremities: No clubbing, cyanosis, or edema. Skin: Warm and dry. No rash. Musculoskeletal: Moves all extremities equally and well. LABORATORY: White blood cell count 11,000 on admission, 4.4 today, hemoglobin 12, hematocrit 37, platelet count 229,000. Electrolytes reviewed and are unremarkable. Liver function tests are normal. Lipase normal. Serum lactate 1.1. Urinalysis normal. Stool C diff toxin negative. Influenza A and B rapid test are negative. Group A strep rapid test negative. IMAGING: She has had [address] scans in the last 3 days that both show some mildly dilated distal small-bowel and, on my view, the right colon, especially the cecum appears to be [id number] distended and thickened. It does look improved on today's study. No free air. Minimal free fluid in the pelvis. The gallbladder is not thickened or with any pericholecystic inflammation. There is probably some sludge in the gallbladder. The appendix is not well visualized. The remaining aspect of the abdomen and pelvis are unremarkable. ASSESSMENT AND PLAN: A 44-year-old female with abdominal pain, nausea, vomiting, diarrhea with fever. It appears she has ileocolitis of unknown etiology. Stool studies are pending. I doubt she has acute cholecystitis or appendicitis. I would recommend continuing the current Levaquin and Flagyl, but we have discontinued the Imodium. We will continue to follow along with you. Thank you for the consultation. cc: Channing Byrne MD
[2019-06-15] MEDS: FLAGYL 500 MG/NS 500 MG/100 ML IVPB IV SCH ×4 (04:05→21:13)
[2019-06-15] MEDS: NS 1,000 ML IV SCH ×2 (04:40→16:40)
[2019-06-15] MEDS: ZOFRAN IV PRN ×3 (06:26→20:12)
[2019-06-15] MEDS: DILAUDID IV PRN ×3 (06:26→16:38)
[2019-06-15] MEDS ORDERED: KLOR-CON PO ONE (07:03)
[2019-06-15 07:35] LABS: BASO# 0.03 X1000 (0.0-0.2); BASO% 0.5 % (0.0-0.8); EOS# 0.05 X1000 (0.0-0.7); EOS% 0.9 % (0.0-10.0); HEMATOCRIT 36.2 % (37.0-47.0); HEMOGLOBIN 12.4 g/dL (12.0-16.0); IMM GRAN# 0.11 X1000 (0.0-0.04); LYMPH# 1.38 X1000 (1.2-3.4); LYMPH% 24.5 % (20.5-51.1); MCH 29.9 PG (27-31); MCHC 34.3 g/dL (33-37); MCV 87.2 FL (81-99); MONO# 0.71 X1000 (0.11-0.59); MONO% 12.6 % (1.7-9.3); MPV 10.5 FL (7.4-10.4); NEUT# 3.35 X1000 (1.4-6.5); NEUT% 59.5 % (42.2-75.2); PLT 242 X1000 (130-400); RBC 4.15 XMIL (4.2-5.4); RDW 13.7 % (11.5-14.5); WBC 5.63 X1000 (4.8-10.8)
[2019-06-15] MEDS ORDERED: CALMOSEPTINE OINTMENT TOP PRN (08:03)
[2019-06-15 08:24] LABS: AGAP 13; ALB/GLOB RATIO 1.3; ALBUMIN 3.5 g/dL (3.5-5.0); ALKALINE PHOSPHATASE 53 U/L (32-104); BUN 7 mg/dL (8-22); CALCIUM 8.2 mg/dL (8.8-10.2); CHLORIDE 104 mmol/L (98-107); COSMO 275; CREATININE 0.8 mg/dL (0.5-0.9); ESTIMATED GFR > 60; GLUCOSE 96 mg/dL (70-104); GOT 14 U/L (10-30); GPT 13 U/L (10-36); POTASSIUM 3.1 mmol/L (3.5-5.1); SODIUM 139 mmol/L (136-145); TCO2 22 mmol/L (25-35); TOTAL BILIRUBIN 0.23 mg/dL (0.20-1.00); TOTAL PROTEIN 6.1 g/dL (6.3-8.3)
[2019-06-15] MEDS ORDERED: PEPCID PO SCH (09:00)
--- NOTE | 2019-06-15 10:30 | Diag Imaging Result Doc PS360 ---
EXAM: US ABDOMEN-COMPLETE HISTORY: abdominal pain, nausea, TECHNIQUE: Abdominal ultrasound COMPARISON: CT from 06/14/2018 FINDINGS: Normal pancreatic head and body. Pancreatic tail is obscured. Normal inferior vena cava. No abdominal aortic aneurysm. Mild fatty infiltration of the liver. Normal right kidney. No hydronephrosis. There is sludge within the gallbladder. No distinct stones. No wall thickening. The common bile duct measures 5 mm. Normal left kidney. No hydronephrosis. Normal spleen. No ascites. IMPRESSION: 1.Mild fatty infiltration of the liver 2.Sludge within the gallbladder Electronically signed by Ferny Castelan 06/15/2019 10:28 AM
[2019-06-15] MEDS: LEVAQUIN 500 MG/D5W 500 MG/100 ML IVPB IV SCH (12:39)
--- NOTE | 2019-06-15 14:33 | PROGRESS NOTE ---
DATE: 06/15/2019 SUBJECTIVE: Patient reports still having diarrhea, 8 episodes yesterday. Denies any abdominal pain but she is still feeling nauseated. No other issues noted as per nursing staff overnight. OBJECTIVE: Vital Signs: Temperature 98.2 degrees, heart rate 74, respiratory rate 20, blood pressure 110/64, O2 saturation 100% on room air. General: This is a very pleasant 44-year-old morbidly obese, female, lying in bed, in no acute distress. Cardiovascular: S1, S2 heard. No murmurs, gallops, or rubs. Regular rate and rhythm. Respiratory: Clear bilaterally to auscultation. No work of breathing. Not using accessory muscles. Abdomen: Soft. Mildly tender to palpation all over the abdomen but no signs of peritoneal irritation. Bowel sounds present, hyperactive. No organomegaly noted. Extremities: No clubbing, cyanosis, or edema. Peripheral pulses present in both legs. Neurological: Patient alert and oriented x3. Moves 4 extremities. LABORATORY DATA: White cell count 5.63, hemoglobin 12.4, hematocrit 36.2, platelets 242,000. BMP is still not available. ASSESSMENT AND PLAN: 1. Viral gastroenteritis versus bacterial enteritis. The patient has been admitted to the hospital because of nausea, vomiting, dehydration and mild leukocytosis at presentation. Gastroenterology has been consulted. They are thinking that this could be basically viral gastroenteritis. Patient clinically still feeling not well, still having diarrhea, 5 to 6 times yesterday and today also going on. Patient is on IV fluids. The patient is on GI soft diet. I think at this point, we will continue to monitor this patient closely. Not having any more episodes of leukocytosis. We will continue to monitor. Also General Surgery is on board. They mentioned that they do not think she has acute cholecystitis or appendicitis. In any case, I prefer to order abdominal ultrasound and see what it shows. 2. At this point, we will monitor this patient closely. cc: Gadiel Snider MD
[2019-06-15] MEDS: SODIUM CHLORIDE 0.9% INJ SCH (16:38)
[2019-06-15] MEDS: PEPCID IV SCH (16:38)
[2019-06-15] MEDS: CULTURELLE PO SCH (20:10)
--- NOTE | 2019-06-15 22:28 | GENERAL SURGERY PROGRESS NOTE ---
DATE: 06/15/2019 SUBJECTIVE: The patient reports continued abdominal pain off and on with diarrhea. No vomiting overnight. She is tolerating some liquids by mouth. She has had 5 more bowel movements overnight. OBJECTIVE: T-max 100 degrees, current temperature 98 degrees. Vital signs stable.General: She is awake, alert, no acute distress. GI: Soft, mild tenderness in the right side of the abdomen. No rebound or guarding. LABORATORY: White cell count 5.6, potassium 3.1. DIAGNOSTIC DATA: Culture data shows no pathogen in the stool. IMAGING: Abdominal ultrasound was performed this morning showing sludge within the gallbladder. ASSESSMENT AND PLAN: 44-year-old female with right-sided abdominal pain. Dilated small bowel loops. Gallbladder sludge. Overall, this appears to be most consistent with viral versus bacterial enteritis and colitis. I do not think she has an acute cholecystitis. Supportive care only. I would agree with continuing Levaquin and Flagyl for now and holding off on antidiarrheals for several more days. She can follow up with us once discharged for further consideration of cholecystectomy in the future. She may also need a colonoscopy in the future to look at the right side of the colon and distal ileum. cc: Channing Byrne MD
--- NOTE | 2019-06-16 03:39 | GASTROENTEROLOGY PROGRESS NOTE ---
DATE: 06/15/2019 SUBJECTIVE: Patient is resting in bed. She is feeling better today. She had an ultrasound done today, which showed evidence of mild fatty infiltration in liver and sludge within the gallbladder. She was able to eat part of her meal yesterday but today, so far, she has not eat much. She had liquid bowel movements today which were liquid brown. She denies any vomiting, blood or passing blood in the stools. PHYSICAL EXAMINATION: Vitals: Temperature 98.7 degrees, pulse of 82, respiratory rate 18, blood pressure 122/67, saturating 100% room air. Body weight of 260 pounds, BMI 43.8 kg/m2. General: Moderately built, malnourished, lying in bed, in no acute distress. HEENT: Mild pallor. No icterus. Pupils equal, reactive to light. Neck: Supple. Abdomen: Mild discomfort in the epigastrium. No rebound. No guarding. Obese. Extremities: No cyanosis, clubbing. Neurologic: She is alert, awake, oriented x3. LABS: H and H is 12.4 and 36.2, white count 5.63, platelet count of 242,000. Sodium 139, potassium 3.1, chloride 104, bicarb 22, anion gap 13, BUN of 7, creatinine 0.8. Glucose of 96, calcium is 8.2, total bilirubin is 0.23, AST 14, ALT 13, total protein is 6.1, albumin of 3.5, lipase of 15. Stool for C difficile toxin is negative. Flu screen A and B negative. Group A strep is negative. Urinalysis showing trace protein. Ultrasound as described in HPI. Abdominal and pelvic CT scan showed mild improvement in small bowel enteritis and fatty infiltrated liver, hysterectomy, sludge and possible small stones in the gallbladder. Small amount of free fluid in the pelvis. IMPRESSION AND PLAN: 1. Nausea, abdominal pain and diarrhea. 2. Obesity. 3. Gallbladder sludge/gallstones. 4. Fatty infiltration liver secondary to obesity. 5. Evidence of enteritis on CT scan, suggesting likely viral gastroenteritis. Stool studies have been negative. RECOMMENDATION: 1. We will continue with supportive treatment. She will continue IV fluids. She is on antibiotics with Levaquin and Flagyl. She is on pain control with Dilaudid. 2. She is on Pepcid b.i.d. for GI prophylaxis. 3. We will start her on Culturelle 1 capsule p.o. b.i.d. for probiotic effect. 4. She is on a GI soft diet. 5. She has mild anemia, which we will continue watch. 6. General surgery is on board for gallbladder stones and gallbladder sludge, but she does not have any clinical evidence of cholecystitis. 7. The above plans were discussed with the patient and all questions answered. Please call us with any further questions. The patient will follow up in the clinic in 2 weeks of discharge. We can use some Lomotil or Imodium if needed for symptom control. I will also add checking for ova and parasites in the stool. Will be available if needed. cc: MD Gadiel Morton MD MTDD
[2019-06-16] MEDS: PEPCID IV SCH ×2 (03:53→17:49)
[2019-06-16] MEDS: FLAGYL 500 MG/NS 500 MG/100 ML IVPB IV SCH ×4 (03:53→22:12)
[2019-06-16] MEDS: TORADOL IV PRN ×3 (03:57→17:59)
[2019-06-16] MEDS: NS 1,000 ML IV SCH ×2 (05:15→22:12)
[2019-06-16 06:28] LABS: BASO# 0.04 X1000 (0.0-0.2); BASO% 0.7 % (0.0-0.8); EOS# 0.04 X1000 (0.0-0.7); EOS% 0.7 % (0.0-10.0); HEMATOCRIT 35.8 % (37.0-47.0); HEMOGLOBIN 12.3 g/dL (12.0-16.0); IMM GRAN# 0.22 X1000 (0.0-0.04); IMM GRAN% 3.7 % (0.0-0.5); LYMPH# 1.48 X1000 (1.2-3.4); LYMPH% 24.6 % (20.5-51.1); MCH 29.9 PG (27-31); MCHC 34.4 g/dL (33-37); MCV 87.1 FL (81-99); MONO# 0.77 X1000 (0.11-0.59); MONO% 12.8 % (1.7-9.3); MPV 10.5 FL (7.4-10.4); NEUT# 3.47 X1000 (1.4-6.5); NEUT% 57.5 % (42.2-75.2); PLT 247 X1000 (130-400); RBC 4.11 XMIL (4.2-5.4); WBC 6.02 X1000 (4.8-10.8)
[2019-06-16 06:42] LABS: AGAP 9; ALBUMIN 3.2 g/dL (3.5-5.0); BUN 7 mg/dL (8-22); CALCIUM 8.4 mg/dL (8.8-10.2); CHLORIDE 105 mmol/L (98-107); COSMO 278; CREATININE 0.7 mg/dL (0.5-0.9); ESTIMATED GFR > 60; GLUCOSE 114 mg/dL (70-104); PHOSPHORUS 3.5 mg/dL (2.7-4.5); POTASSIUM 2.8 mmol/L (3.5-5.1); SODIUM 140 mmol/L (136-145); TCO2 26 mmol/L (25-35)
[2019-06-16] MEDS: CULTURELLE PO SCH ×2 (08:07→22:12)
--- NOTE | 2019-06-16 08:25 | PROGRESS NOTE ---
DATE: 06/16/2019 SUBJECTIVE: The patient reports having less diarrhea yesterday. The patient is tolerating clear liquids, although sometimes she feels nauseated. No other issues noted as per nursing staff overnight. OBJECTIVE: Vital Signs: Temperature 98.9 degrees, heart rate 78, respiratory rate 20, blood pressure 127/80, O2 saturation 100% on room air. General Examination: This is a 44-year-old, morbidly obese, female lying in bed, in no acute distress. Cardiovascular Examination: S1 and S2 heard. No murmurs, gallops, or rubs. Regular rate and rhythm. Respiratory Examination: Clear bilaterally to auscultation. No work of breathing or using accessory muscles. Abdomen: Soft. A little bit distended but nontender to palpation. No signs of peritoneal irritation. Bowel sounds present. No organomegaly. Extremities: No clubbing, cyanosis, or edema. Peripheral pulses present in both legs. Neurological Examination: The patient is alert and oriented x3. Moves 4 extremities. Laboratory Data: Pending at the time of my dictation. ASSESSMENT AND PLAN: Viral gastroenteritis versus bacterial enteritis. Clinically, this patient is doing better, less bowel movements. The patient has been started on Culturelle. Gastroenterology and General Surgery have been consulted. Basically, they are not planning to do any procedures on her. From my standpoint, I think we will advance her diet from clear liquids to a gastrointestinal soft. Her labs have been completely fine from yesterday, not having any leukocytosis, and the patient is able to tolerate this gastrointestinal soft diet, I think. At this point, we will continue with a gastrointestinal soft diet and monitor her closely today, see if she has less nausea or vomiting. It that is fine, we will let this patient go tomorrow. cc: Gadiel Snider MD
[2019-06-16] MEDS: LEVAQUIN 500 MG/D5W 500 MG/100 ML IVPB IV SCH (12:14)
[2019-06-16] MEDS: ZOFRAN IV PRN ×2 (12:48→17:53)
--- NOTE | 2019-06-16 15:05 | GENERAL SURGERY PROGRESS NOTE ---
DATE: 06/16/2019 SUBJECTIVE: The patient overall is mildly improved with decreased pain. No vomiting. She is tolerating a liquid diet. She is having multiple liquid bowel movements. OBJECTIVE: Vital Signs: She is afebrile Vital signs are stable. General: She is awake, alert, oriented x3 in no acute distress. GI: Soft, mild tenderness diffusely. No rebound or guarding. LABORATORY: CBC and metabolic profile reviewed and notable only for potassium of 2.8. Microbiology showed many white blood cells in the stool, but stool culture is negative. Ova and parasite testing is still pending. ASSESSMENT AND PLAN: A 44-year-old female with nausea, abdominal pain, diarrhea, and likely enteritis of the distal small bowel and possibly the right colon. She has known gallstones. She appears to be slowly improving, and I agree with increasing her diet and plans for discharge in the next 24 hours. cc: Channing Byrne MD
[2019-06-16] MEDS: SODIUM CHLORIDE 0.9% INJ SCH (17:50)
[2019-06-16] MEDS ORDERED: PHENERGAN IV PRN (23:07)
[2019-06-16] MEDS ORDERED: SODIUM CHLORIDE 0.9% INJ PRN (23:07)
[2019-06-16] MEDS ORDERED: KLOR-CON PO ONE (23:09)
[2019-06-16] MEDS ORDERED: NS + KCL 40 MEQ 1,000 ML IV SCH (23:15)
[2019-06-16] MEDS: POTASSIUM CHLORIDE 20 MEQ/SWI 20 MEQ/100 ML IVPB IV SCH (23:31)
[2019-06-17] MEDS: POTASSIUM CHLORIDE 20 MEQ/SWI 20 MEQ/100 ML IVPB IV SCH (01:35)
[2019-06-17] MEDS: FLAGYL 500 MG/NS 500 MG/100 ML IVPB IV SCH ×2 (03:45→10:43)
[2019-06-17] MEDS: PEPCID IV SCH (03:45)
--- NOTE | 2019-06-17 03:47 | GASTROENTEROLOGY PROGRESS NOTE ---
DATE: 06/16/2019 SUBJECTIVE: Resting in bed. She is feeling better. She had 3 bowel movements today which were liquid. She was able to eat her meal this morning and this afternoon. She denies any nausea or vomiting today. OBJECTIVE: Vital Signs: Temperature 98.4 degrees, pulse of 71, respiratory rate 20, blood pressure 137/85, O2 saturation is 100%on room air. Body weight of 263 pounds. BMI of 43.8 kg. General Appearance: Obese, lying in bed, in no acute distress. HEENT: Mild pallor. No icterus. Neck: Supple. Abdomen: Obese soft, nontender, nondistended. Mild discomfort. Extremities: No cyanosis or clubbing. Neurologic: She is alert, awake, oriented x3. LABORATORY DATA: H H is 12.3 and 35.8, white count is 6.02, platelet count of 247,000. Sodium of 140, potassium is 2.8, chloride is 105, bicarbonate is 26, anion gap 9, BUN of 7, creatinine 0.7, glucose of 114, calcium 8.4, phosphorus 3.5, albumin 3.2. Ova and parasites are pending. Stool studies are negative. IMPRESSION AND PLAN: 1. Nausea is improved. 2. Abdominal pain is improving. 3. Diarrhea is slowly improving. 4. Obesity with BMI of 43.8 kg. There is some gallbladder sludge and gallstones, but no evidence of any acute cholecystitis. 5. Fatty infiltration of liver secondary to obesity. 6. Evidence of enteritis on CT scan. Likely viral gastroenteritis. Stool studies have been negative. 7. Stool for ova and parasites. She will continue on Pepcid b.i.d. for GI prophylaxis 6-12v weeks and then as needed. She will continue on Culturelle 1 capsule p.o. b.i.d. for 6 weeks. She is on a GI soft diet. She is tolerating it so far. She is on empiric antibiotics Levaquin and Flagyl. We should stop the antibiotics per the primary team. She is on IV fluids as well. The patient is counseled to lose weight. The above plans were discussed with the patient and all questions answered. The patient is feeling better today and we will sign off at this time. We will follow the patient in 3 weeks of discharge in the clinic. At that time we may plan for doing any endoscopic intervention if the patient's symptoms persist. She will probably go home on probiotics for 6 weeks. cc: MD Gadiel Morton MD
[2019-06-17] MEDS ORDERED: DIFLUCAN PO ONE (05:31)
[2019-06-17] MEDS ORDERED: KLOR-CON PO ONE (05:32)
[2019-06-17 07:47] VITALS: BP 138/79
[2019-06-17 08:05] LABS: BASO# 0.03 X1000 (0.0-0.2); BASO% 0.5 % (0.0-0.8); EOS# 0.08 X1000 (0.0-0.7); EOS% 1.4 % (0.0-10.0); HEMOGLOBIN 12.5 g/dL (12.0-16.0); IMM GRAN# 0.44 X1000 (0.0-0.04); IMM GRAN% 7.8 % (0.0-0.5); LYMPH# 1.66 X1000 (1.2-3.4); LYMPH% 29.4 % (20.5-51.1); MCH 29.4 PG (27-31); MCHC 33.8 g/dL (33-37); MCV 87.1 FL (81-99); MONO# 0.69 X1000 (0.11-0.59); MONO% 12.2 % (1.7-9.3); MPV 10.4 FL (7.4-10.4); NEUT# 2.75 X1000 (1.4-6.5); NEUT% 48.7 % (42.2-75.2); PLT 261 X1000 (130-400); RBC 4.25 XMIL (4.2-5.4); RDW 14.3 % (11.5-14.5); WBC 5.65 X1000 (4.8-10.8)
[2019-06-17 08:40] LABS: EOS 2 % (1-10); LYMPHS 32 % (21-51); MONO 10 % (1-9); NRBC 1 % (0-0); SEGS 56 % (42-75)
[2019-06-17 08:52] LABS: AGAP 12; ALBUMIN 3.4 g/dL (3.5-5.0); BUN 7 mg/dL (8-22); CALCIUM 8.4 mg/dL (8.8-10.2); CHLORIDE 105 mmol/L (98-107); COSMO 279; CREATININE 0.8 mg/dL (0.5-0.9); ESTIMATED GFR > 60; GLUCOSE 89 mg/dL (70-104); PHOSPHORUS 2.8 mg/dL (2.7-4.5); POTASSIUM 3.4 mmol/L (3.5-5.1); SODIUM 141 mmol/L (136-145); TCO2 24 mmol/L (25-35)
[2019-06-17] MEDS: CULTURELLE PO SCH (10:43)
[2019-06-17] MEDS: LEVAQUIN 500 MG/D5W 500 MG/100 ML IVPB IV SCH (11:48)
--- NOTE | 2019-06-18 17:26 | DISCHARGE SUMMARY ---
ADMISSION DATE: 06/12/2019 DISCHARGE DATE: 06/17/2019 DISCHARGE DIAGNOSES: 1. Viral gastroenteritis. 2. Intractable nausea and vomiting, resolved. 3. Fatty liver. CONSULTATIONS: 1. Dr. Tyshawn Cueto from GI. 2. Dr. Byrne from General Surgery. PROCEDURES: 1. Abdomen and pelvis CT showed mild distal small bowel enteritis with fatty infiltration of the liver, hysterectomy. 2. CT of abdomen and pelvis repeated 3 days after showed mild improvement of the small bowel enteritis. There is fatty infiltration of the liver, hysterectomy, and sludge with possible small stones in the gallbladder. 3. Abdominal ultrasound did show sludge within the gallbladder, mild fatty infiltration of the liver. HOSPITAL COURSE: This is a 44-year-old female with unremarkable past medical history, who presented to the emergency department complaining of recurrent nausea, vomiting, and abdominal pain. Workup as we mentioned above. The patient was admitted to the hospital. Placed on IV fluids, n.p.o., and pain medications as needed. The patient started progressively getting better. Abdominal pain started getting better so we started a clear liquid diet. We were able to advance the diet to a GI soft diet. Then the patient was feeling completely recovered, so we decided to send this patient home. She was evaluated by GI and she received while she was here in the hospital [facility] and [facility] for possible infectious colitis and enteritis, but we thought that considering that this patient did not have elevation of the white cell count or fever, we decided just to provide antibiotics that she was receiving in the hospital only. Clinically, the patient was doing better so we are going to discharge this patient in stable condition. DISCHARGE PHYSICAL EXAMINATION: Vital signs: Temperature 98.4 degrees, heart rate 77 respiratory rate 18, blood pressure 119/72, O2 saturation 97% on room air. General Examination: This is a 44-year-old female lying in bed, in no acute distress. Cardiovascular: S1, S2 heard. No murmurs, gallops, or rubs. Regular rate and rhythm. Respiratory: Clear bilaterally to auscultation. No work of breathing or using accessory muscles. Abdomen: Soft. Nontender to palpation. Bowel sounds present. No organomegaly. Extremities: No clubbing, cyanosis, or edema. Peripheral pulses present in both legs. Neurological: The patient is alert and oriented x3. Moves 4 extremities. DISCHARGE DISPOSITION: Home to self-care. DISCHARGE MEDICATIONS: 1. Zofran 4 mg q.6 hours p.r.n. for nausea. 2. Culturelle 1 tablet p.o. twice daily for a month. cc: Gadiel Snider MD
== END 2019-06-17 14:23 | disposition home or self-care (01) | DRG 392 ==
LOC: P.MEDSURG 21:06 → P.ED 21:06 → OBSVTOIN 06-12 01:18 → SUATTDRO 06-12 01:18 → 4N 06-14 12:10
PROVIDERS: ATTEND Internal Medicine